=== PATIENT | male | born 1965 | race African-American/Black ===

== ENCOUNTER 2017-06-05 06:59 | Emergency (ER) | payer OTHER ==
[~2017-06-05] VITALS: Ht 175.3 cm; Wt 146.0 kg
[2017-06-05 07:01] VITALS: BP 136/70
== END 2017-06-05 09:10 | disposition home or self-care (01) ==
LOC: EME 06:59
DX: S09.90XA Unspecified injury of head, initial encounter (principal); S00.212A Abrasion of left eyelid and periocular area, initial encounter; S00.12XA Contusion of left eyelid and periocular area, initial encounter; E11.9 Type 2 diabetes mellitus without complications; I25.2 Old myocardial infarction; F17.200 Nicotine dependence, unspecified, uncomplicated; W18.39XA Other fall on same level, initial encounter; W22.8XXA Striking against or struck by other objects, initial encounter; Z79.02 Long term (current) use of antithrombotics/antiplatelets; Z88.7 Allergy status to serum and vaccine
CPT/HCPCS: 70450; 70486; 99281; 99284; J3010